=== PATIENT | male | born 1945 | race Caucasian/White ===

== ENCOUNTER 2019-03-06 09:29 | Inpatient (IN) | payer OTHER ==
[~2019-03-06] VITALS: Ht 182.9 cm; Wt 90.7 kg
--- NOTE | ~2019-03-06 | HC ---
[facility] [place] [address] CONSULTATION Name: JUANITA VEE Vero Room #: 449-I [facility] [place]#: [id number] Admission: 03/06/19 ������������������ Attend Phys: Phil Moya MD Discharge: ������������������ Date of : 43 Report #: [id number] THIS REPORT FOR: //name// CC: Phil Hinson DATE OF SERVICE: 03/07/2019 HISTORY OF PRESENT ILLNESS: The patient is a 73-year-old white male admitted with intractable low back pain. He notes he is in the midst of moving from one house to another and he has been lifting a lot of chairs. The pain started actually about 2 months ago when he slipped on some ice and noted some low back pain. He has been nagging since then and worsened, especially over the last couple of days with moving and frequent bending. He notes that it was severe low back pain. It was a grade 10/10 yesterday, but with the treatment he is currently getting, the medication and rest overnight, he is down to only 2/10. Workup includes a CT scan, which showed severe disk space L3-L4 impinging on the left L3. The patient has a history of diskectomy by ____ 35 years ago with no other back surgeries. He denies any bowel or bladder changes. No numbness or tingling. Denies that the pain shoots down either leg. He localizes it in his mid-lower back. PAST MEDICAL HISTORY: Includes hypertension, hyperlipidemia, diabetes mellitus, atrial fibrillation, non-Hodgkin's lymphoma, status post chemo with stem cell. MEDICATIONS: Please see the full medication listing, this includes vitamins, herbals, and supplements per report. ALLERGIES: ADHESIVE, CEFEPIME, TAPE. SOCIAL HISTORY: Lives in a house. He notes that he is in the process of moving in with a lady friend right at the current time. The bedroom will be on the 1st floor, one step in. He did not utilize gait aids premorbidly. HABITS: Former tobacco abuse, quit greater than a year ago. No history of alcohol abuse. REVIEW OF SYSTEMS: No current complaints of chest pain, shortness of breath or abdominal discomfort. PHYSICAL EXAMINATION: GENERAL: Pleasant, 73-year-old, bearded white male, in no obvious distress. VITAL SIGNS: Last recorded temperature 97.3, pulse 57, respirations 20, blood pressure 125/71. NEUROLOGIC: The patient is alert. He is pleasant. HEENT: Appeared to be benign. [facility] [address] [place] [address] CONSULTATION Name: JUANITA VEE Room #: 449-I [facility]#: [id number] Admission: 03/06/19 ������������������ Attend Phys: Phil Moya MD Discharge: ������������������ Date of : 43 Report #: [id number] NEUROMUSCULOSKELETAL: Cranial nerves are grossly intact. Facies are symmetric. Functional range of motion of both upper extremities without obvious focal weakness. DTRs are trace to 1. Lower extremities with no focal calf swelling. He appears to have excellent strength of both lower extremities. No focal weakness. Tone appeared to be intact. No clonus. He was able to do, with some discomfort, roll over on to his right side. No paravertebral spasm was noted. He has some tenderness located mostly over his left paraspinal musculature as well as to some extent over his left sacroiliac joint. ASSESSMENT: A 73-year-old white male with the following problem list: 1. Intractable low back pain with initial inability to ambulate. He notes his back pain has improved this morning. 2. CT scan with left L3-L4 impinging on the left L3. Ortho Spine to evaluate. 3. Past history of a diskectomy many years ago. 4. Functional mobility and ADL deficits. 5. Past history of non-Hodgkin's lymphoma, status post chemo and stem cell. 6. History of hyperlipidemia. 7. Diabetes mellitus. 8. Atrial fibrillation. PLAN: He notes that his pain is better today than when he was admitted. Therapy evaluations will be undertaken and we will see what his current function is. Ortho spine to evaluate. We will be glad to follow along with you regarding his rehab therapy needs. ��������������������������������������������� ���������������������������������������� By: ��������������������������������������������� [id number] Zackary Hughes MD /nt
[~2019-03-06 09:29] MED LIST: COREG12.5 MG PO; COUMADIN 2 MG TA2 M1 PO; COUMADIN 5 MG TA5 M1 PO; CRESTOR40 MG PO; DILAUDID2 M1 PO; FLOMAX0.4 MG PO; GLIPIZIDE ER5 MG PO; GLIPIZIDE XL10 MG PO; GLIPIZIDE XL5 MG PO; GLUCOPHAGE1000 MG PO; JANUVIA100 MG PO; K-DUR10 MEQ PO; LANOXIN 0.120.125 M1 PG; LANOXIN 0.120.125 M1 PO; LISINOPRIL10 MG PO; LORTAB 5 MG/5001 TA1 PO; METFORMIN 500500 MG PO; METOPROLOL 50 M50 M1 PO; MULTIVITAMIN W1 EAC5 PO; PERCOCET 10-321 EACH PO; PRADAXA150 MG PO; PREVACID 30MG C30 M1 PO; PROTONIX40 M1 PO; SORINE 80 MG TA80 M1 PO; THERA-M CAPLET1 EACH PO; TOPROL XL100 MG PO; TRAMADOL 50 MG50 MG PO; VITAMIN C + RO500 MG PO; VITAMIN E 400I400 I1 PO; VITAMIN E400 UNIT PO
[2019-03-06 09:30] VITALS: BP 128/64
[2019-03-06 11:20] LABS: URINE BILIRUBIN NEGATIVE (Negative); URINE BLOOD TRACE (Negative); URINE CLARITY CLEAR; URINE COLOR YELLOW; URINE GLUCOSE-RANDOM* NEGATIVE (Negative); URINE KETONES NEGATIVE (Negative); URINE LEUKOCYTES-REFLEX NEGATIVE (Negative); URINE NITRITE-REFLEX NEGATIVE (Negative); URINE PROTEIN (DIPSTICK) NEGATIVE (Negative); URINE SPECIFIC GRAVITY <= 1.005 (1.005-1.035); URINE UROBILINOGEN 0.2 E.U./dl (0.2-1.0)
[2019-03-06 11:53] LABS: ABSOLUTE NEUTROPHILS 3.3 thou/uL (1.4-8.2); BASOPHILS 0.8 % (0.0-2.0); EOSINOPHILS 1.3 % (0.0-3.0); HEMATOCRIT 42.2 % (42.0-52.0); HEMOGLOBIN 14.2 gm/dL (14.0-18.0); MCH 32.7 pg (26.0-34.0); MCHC 33.7 g/dL (28.0-37.0); MCV 97.1 fL (80.0-100.0); MONOCYTES 7.8 % (1.0-8.0); POLYS 69.1 % (36.0-66.0); RBC 4.34 mil/uL (4.50-6.00); RDW 13.7 % (10.5-14.5); WBC 4.8 thou/uL (4.0-11.0)
[2019-03-06 12:01] LABS: CALCIUM 9.5 mg/dL (8.5-10.1); CREATININE 0.9 mg/dL (0.7-1.3); POTASSIUM 4.6 mmol/L (3.5-5.1)
[2019-03-06 12:09] LABS: ALBUMIN 4.2 g/dL (3.4-5.0); TOTAL BILIRUBIN 0.5 mg/dL (<0.1-1.0); TOTAL PROTEIN 7.2 g/dL (6.4-8.2)
[2019-03-06 12:14] VITALS: BP 138/71
[2019-03-06 12:30] LABS: PLATELET COUNT 220 thou/uL (150-400)
[2019-03-06] MEDS ORDERED: XARELTO20 MG PO (12:46)
[2019-03-06] MEDS ORDERED: TRAZODONE HCL50 MG PO (12:47)
[2019-03-06 12:49] VITALS: BP 134/65
[2019-03-06 14:44] VITALS: BP 133/77
[2019-03-06 19:17] VITALS: BP 118/74
[2019-03-07 04:00] VITALS: BP 113/73
[2019-03-07 05:45] LABS: ABSOLUTE NEUTROPHILS 5.9 thou/uL (1.4-8.2); BASOPHILS 0.1 % (0.0-2.0); HEMATOCRIT 41.6 % (42.0-52.0); HEMOGLOBIN 14.3 gm/dL (14.0-18.0); LYMPHOCYTES 9.1 % (24.0-44.0); MCH 32.7 pg (26.0-34.0); MCHC 34.3 g/dL (28.0-37.0); MCV 95.4 fL (80.0-100.0); MONOCYTES 1.9 % (1.0-8.0); POLYS 88.9 % (36.0-66.0); RBC 4.36 mil/uL (4.50-6.00); RDW 13.4 % (10.5-14.5); WBC 6.7 thou/uL (4.0-11.0)
[2019-03-07 05:58] LABS: CALCIUM 9.5 mg/dL (8.5-10.1); CREATININE 0.8 mg/dL (0.7-1.3); MAGNESIUM 1.7 mg/dL (1.8-2.4); POTASSIUM 4.4 mmol/L (3.5-5.1)
[2019-03-07 06:36] LABS: PLATELET COUNT 200 thou/uL (150-400); PLATELET ESTIMATE NORMAL
[2019-03-07 07:25] VITALS: BP 125/71
[2019-03-07 14:33] VITALS: BP 128/82
[2019-03-08 05:50] LABS: HEMATOCRIT 42.2 % (42.0-52.0); HEMOGLOBIN 14.6 gm/dL (14.0-18.0); MCH 32.6 pg (26.0-34.0); MCHC 34.6 g/dL (28.0-37.0); RBC 4.49 mil/uL (4.50-6.00); RDW 13.3 % (10.5-14.5); WBC 10.4 thou/uL (4.0-11.0)
[2019-03-08 06:07] LABS: ALBUMIN 3.8 g/dL (3.4-5.0); CALCIUM 9.2 mg/dL (8.5-10.1); MAGNESIUM 1.9 mg/dL (1.8-2.4); POTASSIUM 4.5 mmol/L (3.5-5.1); TOTAL BILIRUBIN 0.3 mg/dL (<0.1-1.0); TOTAL PROTEIN 6.7 g/dL (6.4-8.2)
[2019-03-08 07:11] VITALS: BP 125/73
[2019-03-08] MEDS ORDERED: NORCO 10-325 T1 EACH PO (10:58)
[2019-03-08] MEDS ORDERED: ZANAFLEX4 MG PO (10:58)
[2019-03-08 13:45] VITALS: BP 125/73
== END 2019-03-08 14:53 | disposition home or self-care (01) | DRG 552 ==
LOC: ER 09:29 → EROBS 12:06 → ER 12:06 → 4W 12:06 → ENTRNSPT 03-08 14:01 → EDTRNSPTSTS 03-08 14:05 → 4W 03-08 14:53
PROVIDERS: Emergency Medicine; Nurse Practitioner; Nurse Practitioner Family; ADMIT Hospitalist
DX: M51.16 Intervertebral disc disorders with radiculopathy, lumbar region (principal); C85.90 Non-Hodgkin lymphoma, unspecified, unspecified site; Z94.84 Stem cells transplant status; M19.90 Unspecified osteoarthritis, unspecified site; E11.9 Type 2 diabetes mellitus without complications; E78.5 Hyperlipidemia, unspecified; I48.91 Unspecified atrial fibrillation; I10 Essential (primary) hypertension; E83.42 Hypomagnesemia; E53.8 Deficiency of other specified B group vitamins; H35.30 Unspecified macular degeneration; Z79.84 Long term (current) use of oral hypoglycemic drugs; Z79.899 Other long term (current) drug therapy; Z88.1 Allergy status to other antibiotic agents; Z91.048 Other nonmedicinal substance allergy status; Z79.01 Long term (current) use of anticoagulants; Z87.891 Personal history of nicotine dependence; Z92.21 Personal history of antineoplastic chemotherapy
CPT/HCPCS: 10040

== ENCOUNTER → 2020-12-24 | Outpatient (CLI) | payer OTHER ==
[~2020-12-24] MED LIST changes: +NORCO 10-325 T1 EACH PO; +TRAZODONE HCL50 MG PO; +XARELTO20 MG PO; +ZANAFLEX4 MG PO
== END ==
LOC: MRI 09:12
PROVIDERS: ATTEND Orthopaedic Surgery Orthopaedic Surgery of the Spine
DX: M51.17 Intervertebral disc disorders with radiculopathy, lumbosacral region (principal); M47.27 Other spondylosis with radiculopathy, lumbosacral region; M48.07 Spinal stenosis, lumbosacral region; M41.86 Other forms of scoliosis, lumbar region; M53.86 Other specified dorsopathies, lumbar region; M51.24 Other intervertebral disc displacement, thoracic region; M25.78 Osteophyte, vertebrae